=== PATIENT | female | born 1970 | race Caucasian/White ===

== ENCOUNTER 2017-08-03 18:16 | Emergency (ER) | payer MEDICARE, MEDICAID ==
[~2017-08-03] VITALS: Ht 152.4 cm; Wt 105.0 kg
[~2017-08-03 18:16] MED LIST: POLY3.5O RIGHT EYE
[2017-08-03 18:18] VITALS: BP 161/101; PULSE 90; RESP 16; TEMP 99.3; O2SAT 99
--- NOTE | 2017-08-03 18:54 | PD ---
HPI Chief Complaint: Cold / Flu Symptoms Time Seen by Provider: 18:51 Travel History International Travel<30 days: No Contact w/Intl Traveler<30days: No Traveled to known affect area: No History of Present Illness HPI 46yo F with PMH of cerebral palsy here with c/o cough for 1 day. Pt is here with her mother and director long term care. Mother said she gets URI twice a year and normally responds to z-zurdo. Pt is her usual self. Denies any fever, retractions, vomiting. History is limited due to clinical condition of patient. PFSH Past Medical History Cerebral Palsy: Yes Diminished Hearing: Yes Immunizations Current: Yes Social History Alcohol Use: No Tobacco Use: No Substance Use: No Allergies-Medications (Allergen,Severity, Reaction): Coded Allergies: No Known Allergies (Verified Allergy, Unknown, 08/03/17) Reported Meds & Prescriptions Reported Meds & Active Scripts Active Zithromax Z-Zurdo (Azithromycin) 250 Mg Dspk 250 Mg PO DIRECTED 500 MG (2 tabs) day 1, then 1 tab days 2-5. Review of Systems Except as stated in HPI: all other systems reviewed are Neg Physical Exam Narrative GENERAL: 46yo F not in distress. SKIN: Focused skin assessment warm/dry. HEAD: Atraumatic. Normocephalic. EYES: Pupils equal and round at 3mm bilaterally. ENT: No nasal bleeding or discharge. Mucous membranes pink and moist. Cerumen in bilateral ears. NECK: Trachea midline. No JVD. CARDIOVASCULAR: Regular rate and rhythm. No murmur appreciated. RESPIRATORY: No accessory muscle use.Decreased breath sounds bilateral lower lungs. Could be secondary to effort. GASTROINTESTINAL: Abdomen soft, non-tender, nondistended. MUSCULOSKELETAL: No obvious deformities. No clubbing. No cyanosis. No edema. NEUROLOGICAL: Awake and alert. Baseline mental status. Does not follow command normally and nonverbal. Data Data Last Documented VS Vital Signs Date Time Temp Pulse Resp B/P (MAP) Pulse Ox O2 Delivery O2 Flow Rate FiO2 08/03/17 20:35 90 20 153/91 (111) 96 08/03/17 18:18 99.3 Orders Orders Chest, Single Ap (08/03/17 ) Influenzae A/B Antigen (08/03/17 18:52) Guaifenesin Liq (Robitussin Liq) (08/03/17 19:15) Ed Discharge Order (08/03/17 20:31) [facility] Medical Decision Making Medical Screen Exam Complete: Yes Emergency Medical Condition: Yes Differential Diagnosis Pneumonia vs. URI vs. bronchitis Narrative Course 46yo F with cerebral palsy here with cough. Temp is 99.3F. O2 sat 99% on RA. Pt seen at end of my shift, will obtain CXR and influenza. Sign out to next team to follow up results and reevaluate. Diagnosis Primary Impression: Cough Scripts Azithromycin (Zithromax Z-Zurdo) 250 Mg Dspk 250 MG PO DIRECTED for Infection, #1 DSPK 0 Refills 500 MG (2 tabs) day 1, then 1 tab days 2-5. Prov: Jessica Martinez MD 08/03/17 Pau Thompson DO Aug 03, 2017 18:54
[2017-08-03] MEDS ORDERED: guaiFENesin SOLUTION 200 MG/10 ML CUP PO ONE (19:15)
--- NOTE | 2017-08-03 19:34 | PD ---
Physical Exam Date Seen by Provider: Aug 03, 2017 Time Seen by Provider: 19:33 Narrative Accepted in transfer of care from Dr. Thompson GENERAL: Well-developed female in no acute distress no respiratory distress SKIN: Warm and dry. CARDIOVASCULAR: Regular rate and rhythm without murmurs, gallops, or rubs. RESPIRATORY: Breath sounds equal bilaterally. No accessory muscle use. Data Data Last Documented VS Vital Signs Date Time Temp Pulse Resp B/P (MAP) Pulse Ox O2 Delivery O2 Flow Rate FiO2 08/03/17 18:18 99.3 90 16 161/101 (121) 99 Orders Orders Chest, Single Ap (08/03/17 ) Influenzae A/B Antigen (08/03/17 18:52) Guaifenesin Liq (Robitussin Liq) (08/03/17 19:15) Ed Discharge Order (08/03/17 20:31) [facility] Medical Record Reviewed: Yes Supervised Visit with KAMLESH: No Interpretation(s) influenza a/b ag: negative Last Impressions Chest X-Ray 08/03/17 0000 Signed Impressions: Service Date/Time: July 18:58 - CONCLUSION: No acute disease. Mukesh Sanders MD Vital Signs Date Time Temp Pulse Resp B/P (MAP) Pulse Ox O2 Delivery O2 Flow Rate FiO2 08/03/17 18:18 99.3 90 16 161/101 (121) 99 Differential Diagnosis Accepted in transfer of care from Dr. Thompson; please refer to her dictation Narrative Course Accepted in transfer of care from Dr. Thompson; follow up on pending CXR/labs and disposition At 8:27 PM patient and mother informed of x-ray and flu results; mother is insistent that patient has this type of presentation twice a year and she does not start early on an azithromycin Z-Zurdo that she becomes ill very quickly and that this is her typical presentation of starting with congestion cough low- grade temperature elevation and then progresses unless she is treated early with a Z-Zurdo. Mother informed chest x-ray reveals no acute process and flu test is negative Z-Zurdo is provided for possible early bronchitis. Diagnosis Primary Impression: Cough Referrals: Primary Care Physician call for appointment Patient Instructions: General Instructions Additional Instruction: Encourage/increase fluid hydration Give acetaminophen/Tylenol for fever 100.4F or greater Complete course of antibiotic as prescribed Return to the emergency department for any concerns or change in condition Follow up with primary care provider Med/Other Pt SpecificInfo: Prescription(s) given Scripts Azithromycin (Zithromax Z-Zurdo) 250 Mg Dspk 250 MG PO DIRECTED for Infection, #1 DSPK 0 Refills 500 MG (2 tabs) day 1, then 1 tab days 2-5. Prov: Jessica Martinez MD 08/03/17 Disposition: 01 DISCHARGE HOME Condition: Stable Jessica Martinez MD Aug 03, 2017 19:34
--- NOTE | 2017-08-03 19:43 | RADRPT ---
EXAM DATE/TIME: 08/03/2017 18:58 [place] COMPARISON: No previous studies available for comparison. INDICATIONS : Cough and congestion on set today. MEDICAL HISTORY : Cerebral palsy. SURGICAL HISTORY : None. ENCOUNTER: Initial ACUITY: 1 day PAIN SCORE: 0/10 LOCATION: Bilateral chest FINDINGS: The lungs demonstrate low volume. The heart size is difficult to assess given the position of the teresa phragms. A focal consolidation is not seen. CONCLUSION: No acute disease. Mukesh Sanders MD on August 03, 2017 at 19:41 Board Certified Radiologist. This report was verified electronically.
[2017-08-03] MEDS ORDERED: ZITHTAB PO (20:34)
[2017-08-03 20:35] VITALS: BP 153/91
== END 2017-08-03 20:46 | disposition home or self-care (01) ==
LOC: PHED 18:16
DX: R05 Cough (principal); G80.9 Cerebral palsy, unspecified
CPT/HCPCS: 71010; 87804; 99284

== ENCOUNTER 2017-11-06 19:09 | Emergency (ER) | payer MEDICARE, MEDICAID ==
[~2017-11-06] VITALS: Ht 154.9 cm; Wt 104.8 kg
[~2017-11-06 19:09] MED LIST changes: -POLY3.5O RIGHT EYE; +ZITHTAB PO
[2017-11-06 19:25] VITALS: BP 155/112; PULSE 97; RESP 12; TEMP 99.5; O2SAT 98
[2017-11-06] MEDS ORDERED: RESP: ALBUTEROL 2.5 MG/IPRATROPIUM 0.5 MG NEB (SCH) INH ONE (19:45)
--- NOTE | 2017-11-06 19:47 | PD ---
HPI Chief Complaint: Cold / Flu Symptoms Time Seen by Provider: 19:35 Travel History International Travel<30 days: No Contact w/Intl Traveler<30days: No Traveled to known affect area: No History of Present Illness HPI Patient comes to the emergency department with family complaining of cough ongoing for a week. Mother reports it got worse last night. Denies giving anything for this. Denies any fevers, nausea, vomiting, or patient complaining of anything. Patient is nonverbal thus limiting H&P. Mom reports seeing primary care doctor shortly after this started was not prescribed anything as it was not that bad. Mom does not believe patient can do an inhaler but does have a nebulizer machine at home that she can use. PFSH Past Medical History Cerebral Palsy: Yes Diminished Hearing: Yes Immunizations Current: Yes (UTD) Tetanus Vaccination: Unknown ?: Not Social History Alcohol Use: No Tobacco Use: No Substance Use: No Allergies-Medications (Allergen,Severity, Reaction): Coded Allergies: No Known Allergies (Verified Allergy, Unknown, 08/03/17) Reported Meds & Prescriptions Reported Meds & Active Scripts Active Zithromax Z-Zurdo (Azithromycin) 250 Mg Dspk 250 Mg PO DIRECTED 500 MG (2 tabs) day 1, then 1 tab days 2-5. Albuterol Neb (Albuterol Sulfate) 2.5 Mg/3 Ml Neb 2.5 Mg NEB Q4HR NEB PRN Zithromax Z-Zurdo (Azithromycin) 250 Mg Dspk 250 Mg PO DIRECTED 500 MG (2 tabs) day 1, then 1 tab days 2-5. Review of Systems Except as stated in HPI: all other systems reviewed are Neg Physical Exam Narrative GENERAL: Well-developed, overly nourished, in no acute distress, and non-ill appearing. SKIN: Focused skin assessment warm and dry. HEAD: Atraumatic. Normocephalic. EYES: Pupils equal and round. EOMI. No scleral icterus. No injection or drainage. ENT: No nasal bleeding or discharge. Mucous membranes pink and moist. NECK: Trachea midline. No cervical lymphadenopathy. Supple. No nuclear rigidity. CARDIOVASCULAR: Regular rate and rhythm. No murmur appreciated. RESPIRATORY: No accessory muscle use. No respiratory distress. Clear to auscultation. Breath sounds equal bilaterally. Hacking cough noted on exam. MUSCULOSKELETAL: No obvious deformities. No clubbing. No cyanosis. No edema. Full range of motion. NEUROLOGICAL: Awake and alert. No obvious cranial nerve deficits. Motor grossly within normal limits. Data Data Last Documented VS Vital Signs Date Time Temp Pulse Resp B/P (MAP) Pulse Ox O2 Delivery O2 Flow Rate FiO2 11/06/17 20:07 11/06/17 19:25 99.5 97 12 98 Orders Orders Albuterol-Ipratropium Neb (Duoneb Neb) (11/06/17 19:45) Ed Discharge Order (11/06/17 20:04) [facility] Medical Decision Making Medical Screen Exam Complete: Yes Emergency Medical Condition: Yes Differential Diagnosis URI, pneumonia, bronchitis, viral syndrome, cough Narrative Course Patients symptom complex is consistent with bronchitis. The patient is non-ill appearing and is in no respiratory distress and comfortable. The patient moves air well and oxygen saturations are normal. There is no clinical evidence to suggest pneumonia at this time. Plan of care and management were discussed with the patient who agreed with plan.The patient was instructed to follow up with their physician and instructed to return if worsens, progressively worsening shortness of breath or difficulty breathing, persistent fever, chest pains or discomfort, inability to keep medication or fluids down with or without vomiting , or as needed. Patient in no obvious distress upon re-evaluation. Patient's mother was asked if they wanted to speak to my attending, which the patient did not wish to do at this time. Any questions/concerns in reference to patient diagnosis/ condition discussed and clarified prior to patient's discharge. Reinforced sheer importance of close follow up with patient's primary physician or primary care clinic. Instructed patient to return to ED immediately, if symptoms return/ worsen. Patient's mother showed understanding of above instructions. Further instructions and recommendations were detailed in discharge paperwork. Patient ambulated without difficulty out of ED at discharge. Diagnosis Primary Impression: Bronchitis Patient Instructions: Acute Bronchitis (ED), General Instructions Additional Instructions: Follow-up with your primary care physician in 3-5 days for reevaluation. Take all medication as prescribed. Encourage plenty of non-caffeinated and nonalcoholic fluids. Return to the emergency department if symptoms get worse. Med/Other Pt SpecificInfo: Prescription(s) given Scripts Azithromycin (Zithromax Z-Zurdo) 250 Mg Dspk 250 MG PO DIRECTED for Infection, #1 DSPK 0 Refills 500 MG (2 tabs) day 1, then 1 tab days 2-5. Prov: Stew Santana MD 11/06/17 Albuterol Neb (Albuterol Neb) 2.5 Mg/3 Ml Neb 2.5 MG NEB Q4HR NEB Y for COUGH, #60 NEBULE 0 Refills Prov: Stew Santana MD 11/06/17 Disposition: 01 DISCHARGE HOME Condition: Stable Noel Isaac Nov 06, 2017 19:47
[2017-11-06] MEDS ORDERED: ZITHTAB PO (19:49)
[2017-11-06] MEDS ORDERED: ALBU0.08 NEB (19:49)
== END 2017-11-06 20:25 | disposition home or self-care (01) ==
LOC: PHEFT 19:09
DX: J40 Bronchitis, not specified as acute or chronic (principal); G80.9 Cerebral palsy, unspecified
CPT/HCPCS: 94664; 99283